=== PATIENT | female | born 2000 | race Caucasian/White ===

== ENCOUNTER 2024-03-13 03:34 | Emergency (ER) | payer MEDICAID ==
[~2024-03-13] VITALS: Ht 160 cm; Wt 101.6 kg
[2024-03-13 03:35] VITALS: BP 121/78; PULSE 90; RESP 17; TEMP 97.6; O2SAT 98
[2024-03-13 03:52] VITALS: O2SAT 98
[2024-03-13 04:37] LABS: BASOPHILS # (AUTO) 0.1 K/uL (0.00-0.22); BASOPHILS % (AUTO) 0.6 % (0.0-2.0); EOSINOPHILS # (AUTO) 0.3 K/uL (0-0.4); EOSINOPHILS % (AUTO) 3.5 % (0.0-4.0); HEMOGLOBIN 12.2 g/dL (12.0-16.0); LYMPHOCYTES # (AUTO) 3.1 K/uL (2.5-16.5); LYMPHOCYTES % (AUTO) 33.1 % (20.5-51.1); MEAN CORPUSCULAR HEMOGLOBIN 29 pg (27-31); MEAN CORPUSCULAR HGB CONC 33 g/dL (33-37); MONOCYTES # (AUTO) 0.8 K/uL (0.8-1.0); MONOCYTES % (AUTO) 8.3 % (1.7-9.3); NEUTROPHILS # (AUTO) 5.2 K/uL (1.8-7.7); NEUTROPHILS % (AUTO) 54.5 % (42.2-75.2); PLATELET COUNT (AUTO) 342 K/uL (140-450); RED CELL DISTRIBUTION WIDTH 14.8 % (11.6-13.7); WHITE BLOOD COUNT (AUTO) 9.5 K/uL (4.8-10.8)
[2024-03-13 04:59] LABS: CALCIUM 9.5 mg/dL (8.5-10.1); CARBON DIOXIDE 28.9 mmol/L (21-32)
[2024-03-13 05:00] LABS: ALBUMIN 3.6 g/dL (3.4-5.0); CREATININE 0.6 mg/dL (0.6-1.3); TOTAL BILIRUBIN 0.5 mg/dL (0.0-1.0); TOTAL PROTEIN, SERUM 7.2 g/dL (6.4-8.2)
[2024-03-13] MEDS: KETOROLAC 30 MG/ML VIAL IVP ONE (05:01)
[2024-03-13 05:03] LABS: ANION GAP 12.8 (8-16); POTASSIUM 3.7 mmol/L (3.5-5.1)
[2024-03-13] MEDS ORDERED: AMOX500C25 PO (06:23)
[2024-03-13] MEDS ORDERED: IBUP-2213 PO (06:24)
[2024-03-13 09:02] VITALS: BP 121/78; PULSE 90; RESP 17; TEMP 97.6; O2SAT 98
== END 2024-03-13 09:09 | disposition home or self-care (01) ==
LOC: MED 03:34
DX: J02.0 Streptococcal pharyngitis (principal); Z79.1 Long term (current) use of non-steroidal anti-inflammatories (NSAID); Z79.2 Long term (current) use of antibiotics
CPT/HCPCS: 36415; 70491; 80053; 84703; 85025; 87081; 96374; 99285; J1885; Q9967